=== PATIENT | female | born 1980 | race Caucasian/White ===

== ENCOUNTER → 2017-11-10 13:59 | Outpatient (CLI) | payer OTHER ==
[2010-08-13 15:06] VITALS: BMI 38.3
== END | disposition home or self-care (01) ==
LOC: D.NM 08:00
DX: R10.9 Unspecified abdominal pain (principal)

== ENCOUNTER → 2017-11-17 14:59 | Outpatient (CLI) | payer OTHER ==
[2010-08-13 15:06] VITALS: BMI 38.3
== END | disposition home or self-care (01) ==
LOC: D.CT 14:59
DX: R10.9 Unspecified abdominal pain (principal)